=== PATIENT | female | born 1965 | race Caucasian/White ===

== ENCOUNTER → 2017-09-20 | Outpatient (CLI) | payer OTHER ==
--- NOTE | 2017-09-20 15:02 | XR ---
EXAMINATION TYPE: XR toes RT DATE OF EXAM: 09/20/2017 COMPARISON: NONE HISTORY: Injury 2 weeks ago with persistent pain. TECHNIQUE: 2a views of fifth digit right foot are obtained. FINDINGS: There is acute/subacute nondisplaced intra-articular fracture through the plantar metaepiph ysis fifth proximal phalanx. There is oblique nondisplaced intra-articular fracture through the media l base of first distal phalanx. Joint spaces are maintained. Overlying soft tissue is unremarkable. IMPRESSION: Acute/subacute nondisplaced fractures through the base of first distal phalanx and distal meta-epiphysis of first proximal phalanx noted. (Initial encounter closed type post traumatic fracture).
== END | disposition home or self-care (01) ==
LOC: RADXRYALE 14:30
PROVIDERS: ATTEND Physician Assistant
DX: S92.912A Unspecified fracture of left toe(s), initial encounter for closed fracture (principal)

== ENCOUNTER → 2018-04-27 | Outpatient (CLI) | payer OTHER ==
--- NOTE | 2018-04-27 15:20 | XR ---
EXAMINATION TYPE: XR knee complete bilateral DATE OF EXAM: 04/27/2018 CLINICAL HISTORY: Chronic right knee pain and new left knee pain with no known injury TECHNIQUE: Three views of the bilateral knees were obtained. COMPARISON: None. FINDINGS: There is no acute fracture/dislocation evident in either knee. There is mild medial curtis rtment joint space narrowing and small marginal osteophytes in the medial compartment bilaterally. No suprapatellar joint effusion is seen. No radiopaque foreign body. The overlying soft tissue appears unremarkable. IMPRESSION: There is no acute fracture or dislocation in either knee. Mild medial compartment arthro sony.
== END | disposition home or self-care (01) ==
LOC: RADXRYALE 10:54
PROVIDERS: ATTEND Physician Assistant Medical
DX: M12.862 Other specific arthropathies, not elsewhere classified, left knee (principal); M12.861 Other specific arthropathies, not elsewhere classified, right knee

== ENCOUNTER → 2019-03-23 | Outpatient (CLI) | payer OTHER ==
--- NOTE | 2019-03-23 15:31 | US ---
EXAMINATION TYPE: US venous doppler duplex UE LT DATE OF EXAM: 03/23/2019 COMPARISON: NONE CLINICAL HISTORY: L Subclavian Bruit R09.89, Pain M79.629. Patient stated left subclavian bruit was a uscultated by referring physician who requested venous duplex left arm. Patient denies arm pain and a lso stated blood pressures were wnl when compared side to side at physician's office. SIDE PERFORMED: left Left Arm: Negative for DVT Left Subclavian Artery Duplex: assessment of this artery was performed for diagnosis of left subclavi an bruit and US demonstrated good color flow and PW arterial Doppler signal. No stenosis was seen in left subclavian artery. IMPRESSION: 1. Left upper extremity negative for deep venous thrombosis. 2. Arterial system in the left upper extremity appears intact without focal stenosis.
== END | disposition home or self-care (01) ==
LOC: RADUSWWP 13:55
PROVIDERS: ATTEND Internal Medicine Interventional Cardiology
DX: M79.622 Pain in left upper arm (principal); R09.89 Other specified symptoms and signs involving the circulatory and respiratory systems

== ENCOUNTER → 2019-03-29 | Outpatient (CLI) | payer OTHER ==
--- NOTE | 2019-03-30 12:36 | MM ---
Reason for exam: screening (asymptomatic). Last mammogram was performed 2 years and 9 months ago. History: Patient is postmenopausal. Physical Findings: A clinical breast exam by your physician is recommended on an annual basis and results should be correlated with mammographic findings. MG Screening Mammo w CAD Bilateral CC, MLO, and XCCL view(s) were taken. Prior study comparison: June 15, 2016, bilateral MG screening mammo w CAD. April 11, 2015, right breast MG work up mamm w CAD RT. The breast tissue is heterogeneously dense. This may lower the sensitivity of mammography. There is chronic nodularity in the right breast. No significant changes when compared with prior studies. ASSESSMENT: Benign, BI-RAD 2 RECOMMENDATION: Routine screening mammogram of both breasts in 1 year.
== END | disposition home or self-care (01) ==
LOC: RADMAMWWP 07:25
PROVIDERS: ATTEND Family Medicine
DX: Z12.31 Encounter for screening mammogram for malignant neoplasm of breast (principal)
CPT/HCPCS: 77067

== ENCOUNTER → 2020-11-25 | Outpatient (CLI) | payer OTHER ==
--- NOTE | 2020-11-25 16:49 | US ---
EXAMINATION TYPE: US thyroid st tissue head/neck DATE OF EXAM: 11/25/2020 COMPARISON: NONE CLINICAL HISTORY: E03.9 Hypothyroidism. GLAND SIZE: Right Lobe: 5.2 x 1.9 x 1.7 cm Overall Parenchyma: heterogenous Left Lobe: 4.5 x 1.5 x 1.4 cm Overall Parenchyma: heterogeneous Isthmus Thickness: 0.4 cm NODULES RIGHT: # of nodules measured on right: 0 LEFT: # of nodules measured on left: 0 ISTHMUS: # of nodules measured in the isthmus: 0 Bilateral neck scanned, no evidence of lymphadenopathy. IMPRESSION: 1. No suspicious nodules in an heterogenous appearing thyroid
== END | disposition home or self-care (01) ==
LOC: RADUSWWP 15:42
PROVIDERS: ATTEND Family Medicine
DX: R93.89 Abnormal findings on diagnostic imaging of other specified body structures (principal); E03.9 Hypothyroidism, unspecified
CPT/HCPCS: 76536

== ENCOUNTER → 2022-08-06 | Outpatient (CLI) | payer OTHER ==
--- NOTE | 2022-08-11 15:59 | MM ---
Reason for Exam: Screening (asymptomatic). Last mammogram was performed 3 year(s) and 4 month(s) ago. Patient History: Menarche at age 14. First Full-Term at age 22. Hysterectomy at age 46. Postmenopausal. Risk Values: Arlin 5 year model risk: 1.1%. NCI Lifetime model risk: 7.4%. Prior Study Comparison: 04/11/2015 Right Diagnostic Mammogram, [facility]. 06/15/2016 Bilateral Screening Mammogram, [facility]. 03/29/2019 Bilateral Screening Mammogram, [facility]. Tissue Density: The breast tissue is heterogeneously dense. This may lower the sensitivity of mammography. Findings: Analyzed By CAD. There is no suspicious group of microcalcifications or new suspicious mass in either breast. Overall Assessment: Negative, BI-RAD 1 Management: Screening Mammogram of both breasts in 1 year. A clinical breast exam by your physician is recommended on an annual basis and results should be correlated with mammographic findings. Electronically signed and approved by: Harsh Turner DO
== END | disposition home or self-care (01) ==
LOC: RADMAMWWP 16:44
PROVIDERS: ATTEND Family Medicine
DX: Z12.31 Encounter for screening mammogram for malignant neoplasm of breast (principal); Z78.0 Asymptomatic menopausal state
CPT/HCPCS: 77067

== ENCOUNTER → 2024-08-07 | Outpatient (CLI) | payer OTHER ==
--- NOTE | 2024-08-08 13:51 | MM ---
Reason for Exam: Screening (asymptomatic). Last mammogram was performed 2 year(s) and 0 month(s) ago. Patient History: Menarche at age 14. First Full-Term at age 22. Hysterectomy at age 46. Postmenopausal. Risk Values: Arlin 5 year model risk: 1.1%. NCI Lifetime model risk: 7.1%. Prior Study Comparison: 06/15/2016 Bilateral Screening Mammogram, [facility]. 03/29/2019 Bilateral Screening Mammogram, [facility]. 08/06/2022 Bilateral MG screening mammo w CAD, [facility]. Tissue Density: The breasts are heterogeneously dense, which may obscure small masses. Findings: Analyzed By CAD. There is no suspicious group of microcalcifications or new suspicious mass in either breast. Overall Assessment: Benign, BI-RAD 2 Management: Screening Mammogram of both breasts in 1 year. . Patient should continue monthly self-breast exams. A clinical breast exam by your physician is recommended on an annual basis. This exam should not preclude additional follow-up of suspicious palpable abnormalities. Note on Arlin scores and lifetime risk: 1. A Arlin score greater than 3% is considered moderate risk. If this is the case, consider specialist referral to assess eligibility for a risk reducing agent. 2. If overall lifetime risk for the development of breast cancer is 20% or higher, the patient may qualify for future screening with alternating mammogram and breast MRI. Electronically signed and approved by: Javed Jsoeph M.D. Radiologis
== END | disposition home or self-care (01) ==
LOC: RADMAMWWP 10:48
PROVIDERS: ATTEND Family Medicine
DX: Z12.31 Encounter for screening mammogram for malignant neoplasm of breast
CPT/HCPCS: 77063; 77067

== ENCOUNTER → 2025-06-27 | Outpatient (CLI) | payer OTHER ==
--- NOTE | 2025-06-28 09:19 | MR ---
INDICATION: Patient age:Female; 59 years old; Reason for study: M51.362 DISC DEGEN, LUM RGN W DISCOG BCK LW EXTR; PHH. COMPARISONS: No priors. TECHNIQUE: Multi planar, multi sequence imaging was performed utilizing: T1-weighted, T2-weighted, a nd turbo inversion recovery imaging of the lumbar spine. The patient was not given contrast. FINDINGS: The lumbar vertebral bodies do have preserved heights and alignment. Multilevel disc ruperto ccation is present. No significant disc height loss. T1/T2 hyperintense benign vertebral hemangioma i nvolving the L2 vertebral body. Multilevel anterior osteophytosis. No abnormal STIR signal. The conus medullaris and the distal spinal cord do appear unremarkable with regards to their signal intensity and morphology. L1-L2: No significant disc pathology is identified. The spinal canal and neural foramen are patent. L2-L3: No significant disc pathology is identified. The spinal canal and neural foramen are patent. L3-L4: Minimal broad-based disc bulge. No spinal canal stenosis. No neural foraminal stenosis. L4-L5: Minimal broad-based disc bulge. No spinal canal stenosis. Bilateral facet arthropathy. No neur al foraminal stenosis. L5-S1: The intervertebral disc appears round on its contour posteriorly without significant mass eff ect upon the thecal sac. Bilateral facet arthropathy. Neural canals do remain patent. Other significant findings: None. IMPRESSION: 1. No definitive evidence for disc herniation or significant spinal canal stenosis. No evidence for significant neural foraminal stenosis. 2. Mild multilevel disc degeneration with associated osteoarthritic changes. [facility], , 06/28/2025 9:17 AM
== END | disposition home or self-care (01) ==
LOC: RADMRIMAIN 18:31
PROVIDERS: ATTEND Family Medicine
DX: M51.362 Other intervertebral disc degeneration, lumbar region with discogenic back pain and lower extremity pain (principal); M47.816 Spondylosis without myelopathy or radiculopathy, lumbar region
CPT/HCPCS: 72148